=== PATIENT | female | born 1940 | race Caucasian/White ===

== ENCOUNTER → 2017-02-04 | Outpatient (CLI) | payer MEDICARE, BC ==
--- NOTE | 2017-02-04 13:28 | XR ---
EXAMINATION TYPE: XR bone survey complete DATE OF EXAM: 02/04/2017 12:43 PM COMPARISON: NONE HISTORY: Monoclonal gammopathy Bony calvarium : 2 views of the bony calvarium demonstrate no evidence for lytic lesion. Spine: Two views of the cervical, thoracic and lumbar spines are submitted. No lytic or blastic lesi on identified. Degenerative changes identified throughout the visualized spine. PELVIS: Single view of the pelvis demonstrates No lytic or blastic lesion identified. UPPER EXTREMITIES: Two views of the upper extremities reveal no evidence for lytic lesion. LOWER EXTREMITIES: 2 views of the lower extremities reveal no evidence for lytic lesion. IMPRESSION: No evidence of lytic or blastic lesion identified.
== END | disposition home or self-care (01) ==
LOC: RADXRMAIN 12:17
PROVIDERS: ATTEND Internal Medicine Hematology & Oncology
DX: D47.2 Monoclonal gammopathy (principal)
CPT/HCPCS: 77075